=== PATIENT | female | born 1995 | race Caucasian/White ===

== ENCOUNTER → 2020-03-06 12:25 | Outpatient (BNVA) | payer BC, SELFPAY | PROVIDERS: Family Provider Family Medicine; Visit Provider Family Medicine | DX: Z11.59 Encounter for screening for other viral diseases (principal) | CPT/HCPCS: 87635 ==

== ENCOUNTER 2020-03-13 08:30 | Outpatient (CLI) | payer BC, SELFPAY ==
--- NOTE | 2020-03-13 08:44 | US_ITS ---
WS: [id number] ULTRASOUND EARLY TECHNIQUE: Transabdominal sonography of the pelvis was performed. Followed by transvaginal sonography to better evaluate the uterus and ovaries. CLINICAL INFORMATION: HIGH RISK LMP: 01/07/2020 Beta hCG: Unknown. COMPARISON: None. FINDINGS: Cervix measures 3.2 cm UTERUS AND GESTATIONAL SAC Intrauterine gestations: Estimated gestational age: 9w6d Estimated date of delivery October 10, 2020 Yolk sac: 0.3 cm. Tebbetts rump length (CRL): 3.0 cm. heart motion: 176 BPM. Subchorionic hemorrhage: None. OVARIES Multifollicular ovaries bilaterally. Right ovary: Normal. Left ovary: Normal. FREE FLUID None. US/US OB <= 14 weeks fetus [id number] IMPRESSION: 1. Single live intrauterine . movement visualized. 2. Estimated gestational age; 9w6d 3. Normal cervix. 4. No free fluid in the cul-de-sac. 5. Normal ovaries.
== END 2020-03-13 08:31 | disposition home or self-care (01) ==
LOC: RAD 08:36
PROVIDERS: PCP Family Medicine; Visit Provider Family Medicine
DX: O09.91 Supervision of high risk pregnancy, unspecified, first trimester; Z3A.09 9 weeks gestation of pregnancy
CPT/HCPCS: 76801

== ENCOUNTER → 2020-04-22 17:04 | Outpatient (BNVA) | payer BC, SELFPAY | PROVIDERS: PCP Family Medicine; Visit Provider Family Medicine | DX: Z20.828 Contact with and (suspected) exposure to other viral communicable diseases (principal) | CPT/HCPCS: 87635 ==

== ENCOUNTER 2020-07-22 07:02 | Outpatient (CLI) | payer BC, MEDICAID, SELFPAY ==
[2020-07-22 07:43] VITALS: BP 127/84; PULSE 89
[2020-07-22 07:50] VITALS: BP 124/84; PULSE 68; RESP 18
--- NOTE | 2020-07-22 09:58 | PC.NURSE ---
[PT HERE AND THIS TRANSPORTATION SALES CONSULTANT WENT TO CHECK ON HER, HAD MISUNDERSTANDING BY MYSELF THAT SHE HAD ALREADY HAD BLOOD DRAW AND WE JUST HAD TO GIVE HER HER SHOT. THAT WAS NOT THE CASE, SO THIS TRANSPORTATION SALES CONSULTANT CALLED LAB TO COME DRAW HER AND I EXPLAINED THAT IT WAS GOING TO TAKE AWHILE TO GET IT DONE AND SHE STATED THAT SHE HAD APPOINTMENT IN [facility] WITH AND NEEDED TO GO. TOLD HER THAT SHE COULD GO AND COME BACK LATER TODAY WHEN [place] GOT [place] AND WE COULD GIVE HER HER INJECTION. LAB HERE AND DRAW HER BLOOD AND PATIENT DOES NOT LIKE NEEDLES SO SHE GOT HOT AND FLUSHED BUT SHE WAS GIVEN JUICE AND COOL CLOTH AND SHE RECOVERED QUICKLY. PT HAD NO IDEA WHAT THE PROCEDURE WAS ON GETTING RHOGAM, SHE DID NOT EVEN KNOW THAT A SHOT WAS INVOLVED PRIOR TO ME EXPLAINING IT TO HER. TOLD PT TO LEAVE HER TYPENEX BRACLET ON BECAUSE WE THAT WAS WHAT WE WERE GOING TO CONPARE TO GIVE HER HER INJECTION. TOLD HER NOT TO HURRY BACK THAT THE RHOGAM WAS GOOD FOR 72 HOURS LONG SHE RETURNED AND HAD HER BRACELET ON. PT AND HER DAD VOICE UNDERSTANDING. THIS TRANSPORTATION SALES CONSULTANT CALLED DR. VELAZQUEZ AND TOLD HIM ABOUT PT BEING HERE AND NOT UNDERSTANDING AT ALL ABOUT THE RHOGAM SHOT. TOLD HIM THAT SHE WAS GOING TO RETURN LATER TODAY FOR INJUECTION. HE STATED THAT WE DON'T NEED TO CALL HIM BACK LATER THAT SHE COULD JUST GET SHOT AND GO HOME, NOTHING NEEDED BUT RHOGAM.
[2020-07-22 15:51] VITALS: BP 126/84; PULSE 68; RESP 18; TEMP 36.2
== END 2020-07-22 07:55 | disposition home or self-care (01) ==
LOC: OPOB 07:02 → OBGYN 07:05
PROVIDERS: PCP Family Medicine; Visit Provider Family Medicine
DX: O26.899 Other specified pregnancy related conditions, unspecified trimester (principal); Z3A.00 Weeks of gestation of pregnancy not specified; Z31.82 Encounter for Rh incompatibility status; Z67.91 Unspecified blood type, Rh negative
CPT/HCPCS: 36415; 86850; 86900; 90384; 96372

== ENCOUNTER 2020-08-29 16:20 | Outpatient (CLI) | payer BC, MEDICAID, SELFPAY ==
[2020-08-29 16:43] VITALS: BP 115/65; PULSE 86; TEMP 36.9
== END 2020-08-29 17:25 | disposition home or self-care (01) ==
LOC: OPOB 16:22 → OBGYN 16:23
PROVIDERS: PCP Family Medicine; Visit Provider Family Medicine
DX: O26.899 Other specified pregnancy related conditions, unspecified trimester (principal); Z3A.00 Weeks of gestation of pregnancy not specified; D75.9 Disease of blood and blood-forming organs, unspecified
CPT/HCPCS: 59025; 99211

== ENCOUNTER 2020-09-05 16:12 | Outpatient (CLI) | payer BC, MEDICAID, SELFPAY ==
[2020-09-05 16:39] VITALS: BMI 33.5
[2020-09-05 16:46] VITALS: BP 99/67; PULSE 93
== END 2020-09-05 16:58 | disposition home or self-care (01) ==
LOC: OPOB 16:16 → OBGYN 16:18
PROVIDERS: PCP Family Medicine; Visit Provider Family Medicine
DX: O26.899 Other specified pregnancy related conditions, unspecified trimester (principal); Z3A.00 Weeks of gestation of pregnancy not specified
CPT/HCPCS: 59025

== ENCOUNTER 2020-09-12 16:37 | Outpatient (CLI) | payer BC, MEDICAID, SELFPAY ==
[2020-09-12 16:55] VITALS: RESP 16; TEMP 36.8
[2020-09-12 16:57] VITALS: BP 110/76; PULSE 96
[2020-09-12 17:12] VITALS: BP 107/69; PULSE 85
== END 2020-09-12 17:18 | disposition home or self-care (01) ==
LOC: OPOB 16:40 → OBGYN 16:41
PROVIDERS: PCP Family Medicine; Visit Provider Family Medicine
DX: O26.899 Other specified pregnancy related conditions, unspecified trimester (principal); Z3A.00 Weeks of gestation of pregnancy not specified; Z86.718 Personal history of other venous thrombosis and embolism; Z79.01 Long term (current) use of anticoagulants
CPT/HCPCS: 59025

== ENCOUNTER 2020-09-26 17:50 | Outpatient (CLI) | payer BC, MEDICAID, SELFPAY ==
[2020-09-26 18:02] VITALS: BP 109/68; PULSE 82
[2020-09-26 18:03] VITALS: RESP 16; TEMP 36.6
[2020-09-26 18:14] VITALS: BMI 34.3
[2020-09-26 18:17] VITALS: BP 106/60; PULSE 76
== END 2020-09-26 18:35 | disposition home or self-care (01) ==
LOC: OPOB 17:56 → OBGYN 10-02 08:16
PROVIDERS: PCP Family Medicine; Visit Provider Family Medicine
DX: O26.899 Other specified pregnancy related conditions, unspecified trimester (principal); Z3A.00 Weeks of gestation of pregnancy not specified; Z86.718 Personal history of other venous thrombosis and embolism
CPT/HCPCS: 59025; 99211

== ENCOUNTER 2020-10-04 16:27 | Outpatient (CLI) | payer BC, MEDICAID, SELFPAY ==
[2020-10-04 16:37] VITALS: BMI 33.7
[2020-10-04 16:40] VITALS: BP 124/78; PULSE 104
[2020-10-04 16:42] VITALS: TEMP 36.4
[2020-10-04 16:45] VITALS: RESP 18
[2020-10-04 16:59] VITALS: BP 105/67; PULSE 93
[2020-10-04 17:10] VITALS: BP 105/67; PULSE 93; RESP 18
== END 2020-10-04 17:15 | disposition home or self-care (01) ==
LOC: OPOB 16:33 → OBGYN 16:35
PROVIDERS: PCP Family Medicine; Visit Provider Internal Medicine
DX: O26.899 Other specified pregnancy related conditions, unspecified trimester (principal); Z3A.00 Weeks of gestation of pregnancy not specified; Z86.718 Personal history of other venous thrombosis and embolism
CPT/HCPCS: 59025

== ENCOUNTER 2020-10-09 06:07 | Inpatient (IN) | payer BC, MEDICAID, SELFPAY ==
[2020-10-09] VITALS (76 sets, daily range): BP systolic 96–169; BP diastolic 55–145; PULSE 67–145; RESP 16–18; TEMP 36.5–36.9; O2SAT 80–100; BMI 33.5
[2020-10-09] MEDS: oxytocin 30 UNIT/500 ML BAG 4 UNIT IV (07:42)
[2020-10-09] MEDS: dextrose 5%-lactated ringers 1,000 ML 125 ML IV ×2 (07:42→21:25)
[2020-10-09 07:52] LABS: Basophils # 0.1 10^3/uL (0.0-0.1); Basophils % 0.7 %; Eosinophils # 0.2 10^3/uL (0.0-0.8); Eosinophils % 1.4 %; Hematocrit 37.7 % (37.0-47.0); Hemoglobin 11.9 g/dL (11.5-15.3); Lymphocytes # 3.8 10^3/uL (0.8-4.8); Lymphocytes % 31.1 %; Mean Corpuscular HGB Conc 31.6 g/dL (30.0-36.0); Mean Corpuscular Hemoglobin 27.9 pg (28.0-34.0); Mean Corpuscular Volume 88.3 fL (81-99); Mean Platelet Volume 10.8 fL (7.4-10.4); Monocytes # 0.9 10^3/uL (0.2-0.9); Monocytes % 7.2 %; Neutrophils % 59.1 %; Nucleated Red Blood Cells % 0 %; Platelet Count 313 10^3/cmm (130-400); Red Blood Count 4.27 10^6/uL (4.1-5.3); Red Cell Distribution Width 13.6 % (12.1-15.1); White Blood Count 12.2 10^3/uL (4.0-10.0)
--- NOTE | 2020-10-09 08:28 | PM.HP ---
Providers/Chief Complaint Admitting Physician: Caio Yo MD Primary Care Provider: Greg Gamble MD Chief Complaint: induction History of Present Illness Kayla Sorensen is a 24 year old G1, P0 at 39.3 weeks gestation by LMP consistent with 9-week ultrasound. Her is complicated by history of PE while on OCPs in 2016 now on Lovenox 40 mg daily for prophylaxis, Down syndrome and family, Rh-. The patient presents for a scheduled induction of labor secondary to history of blood clot in order to be off of Lovenox prior to delivery. The patient is feeling well at this time. She denies any chest pains, shortness of breath, nausea, vomiting, diarrhea, constipation, dysuria, headaches, vaginal bleeding, leakage of fluid, contractions. Upon admission the patient cervix was 4/70/-2. Medications/Allergies Home Medications Medication Instructions Recorded Confirmed Last Taken Type Lovenox 09/05/20 09/26/20 History 0700 #2 1 tab PO DAILY 09/05/20 09/05/20 Unknown History ProAir HFA 09/05/20 Unknown History Allergies Allergy/AdvReac Type Severity Reaction Status Date / Time No Known Allergies Allergy Verified 09/05/20 17:19 PFSH Acute PFSH: Medical History (Updated 10/09/20 @ 08:32 by Caio Yo MD) Hx pulmonary embolism Social History (Updated 10/09/20 @ 08:34 by Caio Yo MD) Smoking and tobacco status: never smoked Alcohol intake: never Substance/Drug Use: never Female Reproductive History: : 1 Vitals/I&O/Wt Last Vital Signs Pulse 87 10/09/20 08:15 Resp 17 10/09/20 07:55 BP 109/76 10/09/20 08:15 Weight last 48 hrs Weight 172 lb Physical Exam Narrative: EXAM NARRATIVE: General: Alert and oriented x3 Eyes: Pupils equal round and reactive to light and accommodation Mouth: Mucous membranes moist, pharynx non-erythematous Cardiac: Regular rate and rhythm without murmurs Lungs: Clear to auscultation bilaterally without wheezes, crackles or rhonchi Abdomen: Soft, non-tender, fundus consistent with gestational age Extremities: Trace edema in the bilateral lower extremities Data : 10/09/20 06:30 A&P Additional A&P Information The patient is doing well at this time she last took her Lovenox on 10/07/2020. The patient denies any current symptoms of blood clot. The patient should be safe to get an epidural if desired. The patient is doing well currently and we will proceed with induction of labor with IV Pitocin. All questions were answered. The patient and her significant other are in agreement with the current plan of care. Attestations Medical Necessity Statement*: The patient will be here for greater than 2 midnights due to routine intrapartum and management of labor and delivery. Coding Level of Care Code Acute [employer] Manager for Brenda Keenan
[2020-10-09] MEDS: lactated ringers 1,000 ML 999 ML IV ×2 (13:46→14:37)
[2020-10-09] MEDS: butorphanol 2 mg/mL SDV 1 mL 1 MG IVP (13:46)
--- NOTE | 2020-10-09 14:30 | ANES.PREANE2 ---
Pre-Anesthetic Assessment Pre-Anesthetic Assessment: Height/Weight: Height 1.52 m Weight 78.018 kg Temp Pulse Resp BP 97.7 F 85 16 130/80 10/09/20 12:55 10/09/20 14:16 10/09/20 12:55 10/09/20 14:16 Preop Diagnosis: labor pain Proposed Procedure: epidural Was Beta Mitch taken within 24 hours: N/A Was Clonidine taken within 24 hours: N/A Social: Social History: No alcohol and No tobacco Exam: Pre-Anes Outpt Exam: alert, oriented x 3, clear to auscultation bilaterally and regular rate & rhythm Airway: Submandibular: WNL Cervical ROM: WNL MP: 2 Dentition: Full Pulmonary: Pulmonary: Asthma (inhaler as needed) CV/HEM: Comments: blood clots/PE history on lovenox until 10/07 : : None reported Hepatic: Hepatic: None reported GI: GI: None reported Metabolic: Metabolic: None reported Musc/skel: Musc/skel: None reported Neuropsych: Neuropsych: None reported Anesthetic Plan: ASA status: 2 Anesthesia: Regional (specify below) Risk of > 500 ml blood loss (7ml/kg in children): No Meds/Allergies Current Medications: Current Medications Generic Name Dose Route Start Last Admin Trade Name Freq PRN Reason Stop Dose Admin Butorphanol Tartra te 1 mg 10/09/20 06:55 10/09/20 13:46 Butorphanol 2 Mg /Ml Sdv 1 Ml IVP 1 mg Q2H PRN Administration SEVERE PAIN Lactated Ringer's 1,000 mls @ 999 m ls/hr 10/09/20 06:55 10/09/20 13:46 Lactated Ringers IV 999 mls/hr .Q1H1M PRN Administration See label comment s Dextrose/Lactated Ringer's 1,000 mls @ 125 m ls/hr 10/09/20 07:00 10/09/20 13:54 Dextrose 5%-Lact ated Ringers IV Infused .Q8H DANIEL Infusion Oxytocin 30 unit in 500 ml s @ 1 mls/hr 10/09/20 07:00 10/09/20 09:45 Pitocin IV 20 milliunit/min .Q24H DANIEL 20 mls/hr Titration Protocol 1 MILLIUNIT/MIN PFSH Anesthesia PFSH: Medical History (Updated 10/09/20 @ 08:32 by Caio Yo MD) Hx pulmonary embolism Social History (Updated 10/09/20 @ 08:34 by Caio Yo MD) Smoking and tobacco status: never smoked Alcohol intake: never Substance/Drug Use: never Female Reproductive History: : 1 Data Anesthesia CBC & Chem 7: 10/09/20 06:30 Other Labs: Laboratory Results - last 48 hr 10/09/20 06:30 WBC 12.2 H RBC 4.27 Hgb 11.9 Hct 37.7 MCV 88.3 MCH 27.9 L MCHC 31.6 RDW 13.6 Plt Count 313 MPV 10.8 H Neut % (Auto) 59.1 Lymph % (Auto) 31.1 [place] % (Auto) 7.2 Eos % (Auto) 1.4 Baso % (Auto) 0.7 Neut # (Auto) 7.20 Lymph # (Auto) 3.8 [place] # (Auto) 0.9 Eos # (Auto) 0.2 Baso # (Auto) 0.1 Nucleated RBC % (auto) 0 Nucleated RBCs # 0.0 Cardiac Studies: No Data to Display
--- NOTE | 2020-10-09 15:03 | ANES.PROC ---
Anesthesia Procedures Procedure/Date: 10/09/20 epidural Procedure Narrative: epidural complete, bolus given, epidural pump initiated with MAINTENANCE OPERATOR education given, vitals taken during procedure using OBIX system and satisfactory throughout, patient admits to decrease pain, report of procedure to OB RN Epidural: Time Out Performed: Yes Consents Signed: Procedure Consent Consent: requested by attending/covering physician, from patient, risks and benefits reviewed and patient agrees to proceed Lumbar Level: L3-L4 Epidural position: sitting Epidural procedure: sterile prep of area, 1% lidocaine to numb the area (3 mL), 18 g needle, negative for paresthesia passed, neg for paresthesia, test dose given, 1.5% xylocaine 1:200k epi (5 mL), 0.2% Ropivacaine bolus ml (5 mL), placed PCEA, no systemic response, sterile dressing applied, L.U.D. no apparent complications and 0.2% Ropiavacaine @ mls/hr (13 mL/hr)
--- NOTE | 2020-10-09 16:51 | PC.NURSE ---
Dr. Ochoa notified to come to the floor for delivery due to heart tones.
--- NOTE | 2020-10-09 16:56 | PC.NURSE ---
Anesthesia notified Faustino Joshua with anesthesia was notified per Dr Yo's request. He stated that he was coming to the floor.
--- NOTE | 2020-10-09 20:03 | PM.DELIVERY ---
Delivery Note: Date of delivery: October 09, 2020 Pre-delivery diagnoses: 1. Intrauterine at 39.3 weeks gestation 2. History of pulmonary embolism while on OCPs in 2016 3. Rh- Post-delivery diagnoses: 1. Intrauterine at 39.3 weeks gestation 2. History of pulmonary embolism 3. Rh- 4. Delivery of healthy female weighing 7 pounds 12 ounces with Apgars of 8 and 9 Procedure: Spontaneous vaginal delivery Op report anesthesia: Epidural Delivering Physician: Caio Yo MD Estimated blood loss (mL): 100 Findings: 1. Healthy infant female weighing 7 pounds 12 ounces with Apgars of 8 and 9 2. Intact placenta with peripheral umbilical cord insertion site. Pre-Delivery Course: The patient was admitted to labor and delivery triage for induction of labor on the morning of 10/09/2020 secondary to being on Lovenox for history of pulmonary embolism. The patient last took her Lovenox on 10/07/2020 so that an epidural would be possible. The patient was 4 cm dilated upon admission and was started on IV Pitocin. The patient made good cervical change and had SROM at 1340 on 10/09/2020. She was 6 cm at that time. She is making good progress until she got to 9 cm. At that time she had a significant deceleration with nonreassuring heart tones. For this reason IV Pitocin was stopped, a fluid bolus was given, oxygen was given and repositioning was done. Gradually the 's heart rate improved and the patient began pushing at 1650 on 10/09/2020. Delivery: The patient was complete shortly after her first push as she pushed past the anterior lip. Patient continued to push and pushed well. The heart tone tracings improved with pushing and there were no further prolonged decelerations after the initial set of pushing until the was . At that time the 's heart rate was staying in the 70s and an episiotomy was done to expedite delivery. The infant delivered in the OA position at 1906 on 10/09/2020. There was no nuchal cord. The left shoulder was the anterior shoulder and delivered with downward pressure. The right shoulder delivered with steady upward pressure. The rest of the infant delivered without complication. The mouth and nose were bulb suctioned by myself and the was crying immediately upon delivery. The infant was placed on the mother's chest where the nurses were waiting to care for her. The cord was clamped by myself after approximately 1 minute. The cord was cut by the 's father. Cord blood was obtained. The cord was then drained of blood and tension was placed on umbilical cord. The placenta delivered without complication at 1911 on 10/09/2020. The placenta was noted to be intact with a peripheral umbilical cord insertion site. The cervix was inspected and no lacerations were noted. The vaginal wall was inspected and no lacerations were noted other than a second-degree midline laceration from the episiotomy. The patient did not need additional anesthesia as her epidural was working still. The laceration was repaired using 3-0 Vicryl in a running fashion. A rectal exam was done and no sutures were noted in the rectum. Currently both the mother and are doing well. Coding Level of Care Code Acute Relief Man for Brenda Keenan
[2020-10-09] MEDS: oxytocin 30 UNIT/500 ML BAG 600 UNIT IV (21:36)
[2020-10-10] VITALS (8 sets, daily range): BP systolic 85–115; BP diastolic 50–70; PULSE 79–105; RESP 14–16; TEMP 36.7–36.8; O2SAT 98–99
[2020-10-10] MEDS: acetaminophen 325 mg Tablet 650 MG PO (00:35)
[2020-10-10 08:24] LABS: Hematocrit 30.3 % (37.0-47.0); Hemoglobin 9.7 g/dL (11.5-15.3); Mean Corpuscular Hemoglobin 28.1 pg (28.0-34.0); Mean Corpuscular Volume 87.8 fL (81-99); Mean Platelet Volume 10.5 fL (7.4-10.4); Platelet Count 240 10^3/cmm (130-400); Red Blood Count 3.45 10^6/uL (4.1-5.3); Red Cell Distribution Width 13.7 % (12.1-15.1); White Blood Count 15.3 10^3/uL (4.0-10.0)
--- NOTE | 2020-10-10 08:39 | P.PN_ITS ---
Subjective Subjective: Interval history: The patient is doing well today. She does have pain related to her tear, otherwise is doing well. Her bleeding is decreasing well. She is ambulating, voiding, passing gas and tolerating food by mouth. Vitals/I&O/Wt Last Vital Signs Temp 98.3 F 10/10/20 00:30 Pulse 97 10/10/20 05:39 Resp 16 10/09/20 16:31 BP 88/50 10/10/20 05:39 Pulse Ox 99 10/09/20 15:39 10/09/20 10/10/20 10/10/20 22:59 06:59 14:59 Intake Total 1451.200 / 3341.400 385.417 / 3726.817 Output Total 1850 / 1850 Balance 1451.200 / 3341.400 -1464.583 / 1876.817 Weight last 48 hrs Weight 172 lb Physical Exam Narrative: EXAM NARRATIVE: General: Alert and oriented x3 Mouth: Mucous membranes moist, pharynx non-erythematous Cardiac: Regular rate and rhythm without murmurs Lungs: Clear to auscultation bilaterally without wheezes, crackles or rhonchi Abdomen: Soft, mild tenderness over the uterus fundus is firm and 2 cm below the umbilicus. Extremities: Trace edema in the bilateral lower extremities Urinary Catheter Management^: Curry: Cath Placed During This Visit: yes Urinary Catheter Date of Insertion: 10/09/20 Urinary Catheter Time of Insertion: 15:35 Data : 10/10/20 08:06 A&P Additional A&P Information The patient is doing well at this time. We will continue to need breast-feeding support. Continue with pain management. Her bleeding is decreasing well. As long as she continues to do well, will plan for discharge home tomorrow. All questions were answered. Attestations Medical Necessity Statement*: Patient will be here for greater than 2 midnights due to routine intrapartum and management of labor and delivery. Coding Level of Care Code Acute Superannuation Funds Manager for Brenda Keenan
[2020-10-10] MEDS: docusate sodium 100 mg Capsule PO ×2 (09:10→17:56)
[2020-10-10] MEDS: ibuprofen 800 mg tablet PO ×3 (09:10→20:40)
[2020-10-10] MEDS: prenatal vitamin Capsule 1 CAP PO (09:10)
[2020-10-10] MEDS: benzocaine-menthol 78 gm Canister 1 SPRAY TOPICAL (20:40)
[2020-10-11 04:30] VITALS: BP 100/66; PULSE 101; RESP 16; TEMP 36.8; O2SAT 97
--- NOTE | 2020-10-11 06:49 | P.DS_ITS ---
Discharge Providers Date of Admission: 10/09/20 06:07 Date of Discharge: October 11, 2020 Attending Provider at Admission: Caio Yo MD Attending Provider at Discharge: Caio Yo MD Primary Care Provider: Greg Gamble MD Diagnoses at Discharge Other Information Additional DC diagnoses/information: 1. Intrauterine s/p spontaneous vaginal delivery at 39.3 weeks gestation 2. History of pulmonary embolism 3. Rh- 4. Delivery of healthy female weighing 7 pounds 12 ounces with Apgars of 8 and 9 Reason for Visit Reason for Visit: induction Hospital Course Hospital Course Pre-Delivery Course: The patient was admitted to labor and delivery triage for induction of labor on the morning of 10/09/2020 secondary to being on Lovenox for history of pulmonary embolism. The patient last took her Lovenox on 10/07/2020 so that an epidural would be possible. The patient was 4 cm dilated upon admission and was started on IV Pitocin. The patient made good cervical change and had SROM at 1340 on 10/09/2020. She was 6 cm at that time. She is making good progress until she got to 9 cm. At that time she had a significant deceleration with nonreassuring heart tones. For this reason IV Pitocin was stopped, a fluid bolus was given, oxygen was given and repositioning was done. Gradually the infant's heart rate improved and the patient began pushing at 1650 on 10/09/2020. Delivery: The patient was complete shortly after her first push as she pushed past the anterior lip. Patient continued to push and pushed well. The heart tone tracings improved with pushing and there were no further prolonged decelerations after the initial set of pushing until the was . At that time the 's heart rate was staying in the 70s and an episiotomy was done to expedite delivery. The delivered in the OA position at 1906 on 10/09/2020. There was no nuchal cord. The left shoulder was the anterior shoulder and delivered with downward pressure. The right shoulder delivered with steady upward pressure. The rest of the infant delivered without complication. The mouth and nose were bulb suctioned by myself and the was crying immediately upon delivery. The was placed on the mother's chest where the nurses were waiting to care for her. The cord was clamped by myself after approximately 1 minute. The cord was cut by the infant's father. Cord blood was obtained. The cord was then drained of blood and tension was placed on umbilical cord. The placenta delivered without complication at 191 on 10/09/2020. The placenta was noted to be intact with a peripheral umbilical cord insertion site. The cervix was inspected and no lacerations were noted. The vaginal wall was inspected and no lacerations were noted other than a second-degree midline laceration from the episiotomy. The patient did not need additional anesthesia as her epidural was working still. The laceration was repaired using 3-0 Vicryl in a running fashion. A rectal exam was done and no sutures were noted in the rectum. Currently both the mother and infant are doing well. Postdelivery course: The patient is doing very well without any complications. Her bleeding is decreasing well. Her pain is well controlled. She is ambulating, voiding, passing gas and tolerating food by mouth. All questions were answered. Routine discharge instructions were discussed. The patient and her significant other are in agreement with discharge home at this time. Physical Exam Narrative: EXAM NARRATIVE: General: Alert and oriented x3 Mouth: Mucous membranes moist, pharynx non-erythematous Cardiac: Regular rate and rhythm without murmurs Lungs: Clear to auscultation bilaterally without wheezes, crackles or rhonchi Abdomen: Soft, mild tenderness over the uterus fundus is firm and 2 cm below the umbilicus. Extremities: Trace edema in the bilateral lower extremities Urinary Catheter Management^: Curry: Cath Placed During This Visit: yes Urinary Catheter Date of Insertion: 10/09/20 Urinary Catheter Time of Insertion: 15:35 Discharge Data Data Completed and Pending: Labs from last 24 hours 10/10/20 10/10/20 10/09/20 08:06 08:06 06:30 WBC 15.3 H RBC 3.45 L Hgb 9.7 L Hct 30.3 L MCV 87.8 MCH 28.1 MCHC 32.0 RDW 13.7 Plt Count 240 MPV 10.5 H Blood Type B Negative Rho(D) Type Negative / 0 Antibody Screen Negative Screen Negative Vitals: Last Vital Signs Temp 98.2 F 10/11/20 04:30 Pulse 101 H 10/11/20 04:30 Resp 16 10/11/20 04:30 BP 100/66 10/11/20 04:30 Pulse Ox 97 10/11/20 04:30 Discharge Plan Discharge Patient Disposition: Home Condition: Good Prescriptions: New ibuprofen 800 mg Tablet 800 mg PO TID Qty: 60 RF: 0 hydrocodone-acetaminophen 5-325 mg Tablet 1 tab PO Q6H PRN (Reason: Moderate To Severe Pain) Qty: 20 RF: 0 DOK 100 mg Capsule 100 mg PO BID Qty: 30 RF: 0 ferrous sulfate 325 mg (65 mg iron) tablet 325 mg PO BID 15 Days Qty: 30 RF: 0 Continued Lovenox auto-injector RF: 0 #2 tablet 1 tab PO DAILY RF: 0 ProAir HFA inhaler RF: 0 Discharge Orders: Discharge Order (Routine); Ordered 10/11/20 Ordered By: Caio Yo Referrals: Caio Yo MD [Physician] - 11/22/20 9:00 am (6 weeks Your 6 week appointment has been scheduled for 11/22/[address] Yo.) Discharge Diet: Usual diet Discharge Activity: Increase activity as tolerated Patient Instructions: Depression (GEN), Vaginal Delivery (DC), Pre- eclampsia and Eclampsia (DC), Bleeding (DC), OB Discharge Report, OB Food/Drug Interaction Guide, Opioid Safety, OB Home Care, OB Proud Parent Packet Activity Restrictions/Additional Instructions: Nothing per vagina for 6 weeks. Discharge Attestations Time Spent in Discharge Care*: greater than 30 min Quality Metrics Clinical Quality Measures During this hospital stay, did patient experience: None Coding Level of Care Code Acute Chg FW DC note
[2020-10-11 07:45] VITALS: BP 123/76; PULSE 91; RESP 16; TEMP 36.6; O2SAT 98
--- NOTE | 2020-10-11 08:21 | PC.NURSE ---
note This mom is nursing using a nipple shield and is getting more comfortable with the process. She still has some tenderness on her left nipple, Reviewed positioning and nipple care.
== END 2020-10-11 09:15 | disposition home or self-care (01) | DRG 806 ==
PROVIDERS: Admitting Provider Family Medicine; PCP Family Medicine; Visit Provider Family Medicine
DX: O76 Abnormality in fetal heart rate and rhythm complicating labor and delivery (principal); O36.0930 Maternal care for other rhesus isoimmunization, third trimester, not applicable or unspecified; Z37.0 Single live birth; O70.1 Second degree perineal laceration during delivery; Z3A.39 39 weeks gestation of pregnancy; Z86.711 Personal history of pulmonary embolism
CPT/HCPCS: 36415; 51702; 59025; 59409; 85025; 85027; 85460; 86850; 86900; 90384; 98960; 99211; J0595; J2795

== ENCOUNTER → 2021-10-01 10:23 | Outpatient (BNVA) | payer BC, MEDICAID, SELFPAY | PROVIDERS: PCP Family Medicine; Visit Provider Family Medicine | DX: O09.90 Supervision of high risk pregnancy, unspecified, unspecified trimester (principal); Z51.81 Encounter for therapeutic drug level monitoring; Z3A.00 Weeks of gestation of pregnancy not specified | CPT/HCPCS: 85025 ==

== ENCOUNTER → 2021-12-02 09:48 | Outpatient (BNVA) | payer BC, MEDICAID, SELFPAY | PROVIDERS: PCP Family Medicine; Visit Provider Family Medicine | DX: O99.810 Abnormal glucose complicating pregnancy (principal); Z3A.00 Weeks of gestation of pregnancy not specified | CPT/HCPCS: 82950 ==

== ENCOUNTER → 2021-12-12 07:42 | Outpatient (BNVA) | payer BC, MEDICAID, SELFPAY | PROVIDERS: PCP Family Medicine; Visit Provider Family Medicine | DX: O09.93 Supervision of high risk pregnancy, unspecified, third trimester (principal); O26.899 Other specified pregnancy related conditions, unspecified trimester; Z67.91 Unspecified blood type, Rh negative; Z34.90 Encounter for supervision of normal pregnancy, unspecified, unspecified trimester; O99.810 Abnormal glucose complicating pregnancy | CPT/HCPCS: 82951; 82952 ==

== ENCOUNTER → 2021-12-15 11:56 | Day surgery (SDC) | payer BC, MEDICAID, SELFPAY ==
[2021-12-15 13:55] VITALS: BP 114/90; PULSE 98; RESP 18; TEMP 36.8; O2SAT 98
[2021-12-15 13:57] VITALS: BP 114/90; PULSE 102; RESP 18; TEMP 36.8; O2SAT 98
== END ==
LOC: GILAB 11:57
PROVIDERS: PCP Family Medicine; Visit Provider Family Medicine
DX: O09.90 Supervision of high risk pregnancy, unspecified, unspecified trimester (principal); O36.0990 Maternal care for other rhesus isoimmunization, unspecified trimester, not applicable or unspecified; Z3A.00 Weeks of gestation of pregnancy not specified
CPT/HCPCS: 36415; 36430; 86850; 86900; 90384; 96372

== ENCOUNTER → 2022-01-08 13:38 | Outpatient (BNVA) | payer BC, MEDICAID, SELFPAY | PROVIDERS: PCP Family Medicine; Visit Provider Family Medicine | DX: O24.419 Gestational diabetes mellitus in pregnancy, unspecified control (principal); Z51.81 Encounter for therapeutic drug level monitoring; O26.899 Other specified pregnancy related conditions, unspecified trimester; Z67.91 Unspecified blood type, Rh negative | CPT/HCPCS: 85025 ==

== ENCOUNTER 2022-01-12 13:47 | Outpatient (CLI) | payer BC, MEDICAID, SELFPAY ==
[2022-01-12 13:56] VITALS: BP 107/69; PULSE 89
[2022-01-12 14:18] VITALS: BP 97/60; PULSE 84
[2022-01-12 14:40] VITALS: BMI 33.7
== END 2022-01-12 14:35 | disposition home or self-care (01) ==
LOC: OPOB 13:48 → OBGYN 13:48
PROVIDERS: PCP Family Medicine; Visit Provider Family Medicine
DX: O26.93 Pregnancy related conditions, unspecified, third trimester (principal); Z3A.32 32 weeks gestation of pregnancy
CPT/HCPCS: 59025

== ENCOUNTER 2022-01-14 13:17 | Outpatient (CLI) | payer BC, MEDICAID, SELFPAY ==
--- NOTE | 2022-01-14 13:00 | US_ITS ---
WS: [id number] BIOPHYSICAL PROFILE AMNIOTIC FLUID HISTORY: gestational DM COMPARISON: 07/24/2021 Cardiac activity: 157 bpm. Cervix: closed. Placenta: Posterior, no previa or abruption. Placenta grade: 1 Parameters are as follows: Breathin Movement: 2 Tone: 2 Fluid volume: 2 Amniotic fluid index: 9.5 cm; largest vertical pocket of amniotic fluid 2.8 cm. US/US OB BPP wo NST [id number] IMPRESSION: 1. Biophysical profile score: 8/8. 2. Normal amniotic fluid.
== END 2022-01-14 13:18 | disposition home or self-care (01) ==
LOC: RAD 13:17
PROVIDERS: PCP Family Medicine; Visit Provider Family Medicine
DX: O24.419 Gestational diabetes mellitus in pregnancy, unspecified control (principal)
CPT/HCPCS: 76819

== ENCOUNTER 2022-01-19 14:38 | Outpatient (CLI) | payer BC, MEDICAID, SELFPAY ==
[2022-01-19 14:46] VITALS: RESP 15
[2022-01-19 14:50] VITALS: BP 119/56; PULSE 118; BMI 33.7
[2022-01-19 15:09] VITALS: BP 98/57; PULSE 108
== END 2022-01-19 15:23 | disposition home or self-care (01) ==
LOC: OPOB 14:39 → OBGYN 14:40
PROVIDERS: PCP Family Medicine; Visit Provider Family Medicine
DX: O24.419 Gestational diabetes mellitus in pregnancy, unspecified control (principal); Z3A.29 29 weeks gestation of pregnancy
CPT/HCPCS: 59025

== ENCOUNTER 2022-02-04 07:43 | Outpatient (CLI) | payer BC, MEDICAID, SELFPAY ==
--- NOTE | 2022-02-04 | US_ITS ---
WS: [id number] BIOPHYSICAL PROFILE AMNIOTIC FLUID HISTORY: WEEKLY BPP AND KELLY COMPARISON: 01/19/2022 Cardiac activity: 150 bpm. Cervix: Partially obscured by the head. No cervical insufficiency identified. position: Vertex. Placenta: Posterior, no previa or abruption. Placenta grade: 2 Parameters are as follows: Breathin Movement: 2 Tone: 2 Fluid volume: 2 Amniotic fluid index: 14.8 cm; largest vertical pocket 5.2 cm. No significant change of amniotic flui d volume. US/US OB BPP wo NST [id number] IMPRESSION: 1. Biophysical profile score: 8/8. 2. Normal amniotic fluid index. No significant change in volume of amniotic flu id since the prior study.
== END 2022-02-04 07:44 | disposition home or self-care (01) ==
LOC: RAD 07:43
PROVIDERS: PCP Family Medicine; Visit Provider Family Medicine
DX: O24.419 Gestational diabetes mellitus in pregnancy, unspecified control (principal)
CPT/HCPCS: 76819

== ENCOUNTER → 2022-02-05 10:39 | Outpatient (BNVA) | payer BC, MEDICAID, SELFPAY | PROVIDERS: PCP Family Medicine; Visit Provider Family Medicine | DX: Z34.90 Encounter for supervision of normal pregnancy, unspecified, unspecified trimester (principal) | CPT/HCPCS: 87081 ==

== ENCOUNTER 2022-02-09 11:53 | Outpatient (CLI) | payer BC, MEDICAID, SELFPAY ==
[2022-02-09 11:59] VITALS: RESP 16
[2022-02-09 12:00] VITALS: BP 137/77; PULSE 113
[2022-02-09 12:03] VITALS: BMI 34.0
[2022-02-09 12:07] VITALS: RESP 18
[2022-02-09 12:11] VITALS: BP 113/73; PULSE 100
[2022-02-09 12:20] VITALS: BP 106/70; PULSE 90
== END 2022-02-09 12:25 | disposition home or self-care (01) ==
LOC: OPOB 11:54 → OBGYN 11:55
PROVIDERS: PCP Family Medicine; Visit Provider Family Medicine
DX: O24.419 Gestational diabetes mellitus in pregnancy, unspecified control (principal); Z3A.00 Weeks of gestation of pregnancy not specified
CPT/HCPCS: 59025

== ENCOUNTER 2022-02-10 07:46 | Outpatient (CLI) | payer BC, MEDICAID, SELFPAY ==
--- NOTE | 2022-02-10 08:01 | US_ITS ---
WS: [id number] BIOPHYSICAL PROFILE AMNIOTIC FLUID HISTORY: GESTATIONAL DIABETES COMPARISON: 02/04/2022 Cardiac activity: 150 bpm. Cervix: closed. Placenta: Posterior and fundal. Placenta grade: 2 Parameters are as follows: Breathin Movement: 2 Tone: 2 Fluid volume: 2 Amniotic fluid index: 12.2 cm. Maximal vertical pocket 4.9 cm. US/US OB lmt w/ BPP wo NST IMPRESSION: 1. Biophysical profile score: 8/8. 2. Normal amniotic fluid.
== END 2022-02-10 07:47 | disposition home or self-care (01) ==
LOC: RAD 07:47
PROVIDERS: PCP Family Medicine; Visit Provider Family Medicine
DX: O24.419 Gestational diabetes mellitus in pregnancy, unspecified control (principal)
CPT/HCPCS: 76815; 76819

== ENCOUNTER 2022-02-20 22:00 | Outpatient (CLI) | payer BC, MEDICAID, SELFPAY ==
[2022-02-20] VITALS (9 sets, daily range): BP systolic 97–115; BP diastolic 57–74; PULSE 85–103; RESP 14; BMI 34.0
[2022-02-21 00:13] VITALS: BP 106/59; PULSE 88
[2022-02-21 00:42] VITALS: TEMP 36.3
[2022-02-21 00:43] VITALS: BP 109/60; PULSE 85
== END 2022-02-21 00:58 | disposition home or self-care (01) ==
LOC: OPOB 22:03 → OBGYN 22:04
PROVIDERS: PCP Family Medicine; Visit Provider Family Medicine
DX: O26.899 Other specified pregnancy related conditions, unspecified trimester (principal); Z3A.00 Weeks of gestation of pregnancy not specified; R10.9 Unspecified abdominal pain
CPT/HCPCS: 59025; 99211

== ENCOUNTER 2022-02-23 13:05 | Outpatient (CLI) | payer BC, MEDICAID, SELFPAY ==
[2022-02-23 13:00] VITALS: BMI 35.9
[2022-02-23 13:13] VITALS: BP 123/77; PULSE 105; RESP 17
== END 2022-02-23 13:35 | disposition home or self-care (01) ==
LOC: OPOB 13:06 → OBGYN 13:06
PROVIDERS: PCP Family Medicine; Visit Provider Family Medicine
DX: O24.419 Gestational diabetes mellitus in pregnancy, unspecified control (principal); Z3A.00 Weeks of gestation of pregnancy not specified
CPT/HCPCS: 59025

== ENCOUNTER 2022-02-24 07:40 | Outpatient (CLI) | payer BC, MEDICAID, SELFPAY ==
--- NOTE | 2022-02-24 07:49 | US_ITS ---
WS: [id number] BIOPHYSICAL PROFILE AND LIMITED OB. HISTORY: WEEKLY BPP AND KELLY COMPARISON: 02/10/2022 Presentation: Vertex. Cervix: Obscured by the head deep within the pelvis. Placenta: Not imaged. HEART: FHR of 114BPM. Biophysical profile: Parameters are as follows: Breathin Movement: 2 Tone: 2 Fluid volume: 2 Amniotic fluid index: 8.6 cm. Maximal vertical pocket 2.9 cm. US/US OB lmt w/ BPP wo NST IMPRESSION: 1. Biophysical profile score: 8/8. 2. Amniotic fluid index 8.6 cm with a maximum vertical pocket of 2.9 cm. Amniot ic fluid index has decreased from 12.2 cm on the prior study.
== END 2022-02-24 07:41 | disposition home or self-care (01) ==
PROVIDERS: PCP Family Medicine; Visit Provider Family Medicine
DX: O24.419 Gestational diabetes mellitus in pregnancy, unspecified control (principal)
CPT/HCPCS: 76815; 76819

== ENCOUNTER 2022-02-26 05:58 | Inpatient (IN) | payer BC, MEDICAID, SELFPAY ==
[2022-02-26] VITALS (47 sets, daily range): BP systolic 102–171; BP diastolic 56–87; PULSE 68–146; RESP 17–18; TEMP 36.3–36.7; O2SAT 97–100; BMI 34.3
[2022-02-26 07:27] LABS: Basophils % 0.3 %; Eosinophils # 0.2 10^3/uL (0.0-0.8); Eosinophils % 1.6 %; Hematocrit 39.4 % (37.0-47.0); Hemoglobin 12.6 g/dL (11.5-15.3); Lymphocytes # 3.4 10^3/uL (0.8-4.8); Lymphocytes % 35.6 %; Mean Corpuscular Volume 87.6 fl (81-99); Mean Platelet Volume 11.3 fL (7.4-10.4); Monocytes # 0.7 10^3/uL (0.2-0.9); Monocytes % 7.5 %; Neutrophils # 5.26 10^3/uL (1.8-7.7); Neutrophils % 54.6 %; Nucleated Red Blood Cells % 0 %; Platelet Count 218 10^3/cmm (130-400); Red Cell Distribution Width 13.2 % (12.1-15.1); White Blood Count 9.6 10^3/uL (4.0-10.0)
[2022-02-26] MEDS: dextrose 5%-lactated ringers 1,000 ML 125 ML IV (07:38)
[2022-02-26] MEDS: oxytocin 30 UNIT/500 ML BAG IV (07:38)
[2022-02-26 07:47] LABS: Glucose Point of Care 73 mg/dL (70-110)
--- NOTE | 2022-02-26 08:12 | PM.HP ---
Providers/Chief Complaint Admitting Physician: Caio Yo MD Primary Care Provider: Greg Gamble MD Chief Complaint: induction History of Present Illness Kayla Horta is a 26 year old @ 39.0 weeks by LMP c/w 8 wk US. Preg c/b h/o PE while on OCP's in 2016 - on Lovenox 40mg daily for prophylaxis during , Down's in family tree, Rh negative, rubella equivocal, gDM diet-controlled The patient presented to labor and delivery triage for a scheduled induction of labor due to the above complications. Her blood sugar has been well controlled at home with diet alone. She took her last dose of Lovenox on the evening of 02/24/2022. In labor and delivery she was noted to be 2 cm dilated with 50% effacement. She was having contractions every 4 to 6 minutes but they were not strong. The patient currently feels well. She denies any headaches, chest pains, shortness of breath, nausea, vomiting, diarrhea, constipation, vaginal bleeding, leakage of fluid. Medications/Allergies Home Medications Medication Instructions Recorded Confirmed Last Taken Type blood-glucose meter #1 ea 12/24/21 02/20/22 Unknown Rx blood sugar diagnostic (OneTouch #100 ea 01/14/22 02/20/22 Unknown Rx Ultra Test strips) lancets (OneTouch UltraSoft #200 ea 01/14/22 02/20/22 Unknown Rx Lancets) Lovenox 40 units SUBCUT DAILY 02/05/22 02/26/22 02/24/22 20:30 History Allergies Allergy/AdvReac Type Severity Reaction Status Date / Time No Known Allergies Allergy Verified 02/20/22 23:21 PFSH Acute PFSH: Medical History Hx pulmonary embolism While on control Social History Smoking and tobacco status: never smoked Alcohol intake: never Female Reproductive History: : 2 Vitals/I&O/Wt Last Vital Signs Pulse 91 02/26/22 07:55 Resp 17 02/26/22 07:50 BP 109/73 02/26/22 07:55 O2 Del Method 02/26/22 07:50 Weight last 48 hrs Weight 176 lb Physical Exam Narrative: General: Alert and oriented x3 Eyes: Pupils equal round and reactive to light and accommodation Mouth: Mucous membranes moist, pharynx non-erythematous Cardiac: Regular rate and rhythm without murmurs Lungs: Clear to auscultation bilaterally without wheezes, crackles or rhonchi Abdomen: Soft, non-tender, fundus consistent with gestational age Extremities: Trace edema in the bilateral lower extremities Data : 02/26/22 07:05 A&P Assessment and plan (1) Supervision of high risk , unspecified, third trimester: The patient is doing well at this time. We will start IV Pitocin for induction of labor. The patient is to be induced secondary to gestational diabetes and a history of pulmonary embolism while on control. Patient's initial blood sugar was 73 and platelets were 218. The patient should be able to get a laboring epidural. We will follow the patient's blood sugars during labor. All questions were answered. The patient is in agreement with the current plan of care. The patient is GBS negative. (2) Rh negative status during : (3) Gestational diabetes: Attestations Medical Necessity Statement*: The patient will be here for greater than 2 midnights due to routine intrapartum and management of labor and delivery. Coding Level of Care Code Acute Dynamotor Repairer for fito Keenan Diagnoses Supervision of high risk , unspecified, third trimester O09.93 Rh negative status during O26.899; Z67.91 Gestational diabetes O24.419
[2022-02-26] MEDS: lactated ringers 1,000 ML 999 ML IV ×2 (10:46→11:36)
[2022-02-26] MEDS: lidocaine 2% INJ 20 mL INJECTION (12:14)
--- NOTE | 2022-02-26 12:33 | P.PCNOB_ITS ---
Delivery Note: Date of delivery: February 26, 2022 Pre-delivery diagnoses: 1. Intrauterine at 39.0 weeks gestation 2. History of pulmonary embolism while on OCPs 3. On daily Lovenox for thromboembolism prophylaxis 4. Rh- status 5. Rubella equivocal 6. Gestational diabetes diet-controlled Post-delivery diagnoses: 1. Intrauterine status post spontaneous vaginal delivery at 39.0 weeks gestation 2. History of pulmonary embolism while on OCPs 3. On daily Lovenox for thromboembolism prophylaxis 4. Rh- status 5. Rubella equivocal 6. Gestational diabetes diet-controlled 7. Delivery of healthy infant male weighing 7 pounds 4 ounces with Apgars of 8 and 9 8. Second-degree midline perineal laceration with repair Procedure: Spontaneous vaginal delivery Delivering Physician: Caio Yo MD Estimated blood loss (mL): 100 Findings: 1. Delivery of healthy infant male weighing 7 pounds 4 ounces with Apgars of 8 9 2. Intact placenta with central umbilical cord insertion site Kayla Horta is a 26 year old G2 now P2 status post spontaneous vaginal delivery @ 39.0 weeks by LMP c/w 8 wk US. Preg c/b h/o PE while on OCP's in 2016 - on Lovenox 40mg daily for prophylaxis during , Down's in family tree, Rh negative, rubella equivocal, gDM diet-controlled Pre-Delivery Course: The patient presented to labor and delivery for a scheduled induction of labor on the morning of 02/26/2022. She was started on IV Pitocin at approximately 8 AM. The patient began having regular contractions. She was 2 cm upon admission. By 10:45 AM on 02/26/[address] Clear fluid was noted. The patient received a laboring epidural, however was making rapid change and it did not give significant assistance in pain control. The patient continued to then make rapid change and was complete by 11:48 AM on 02/26/2022. Delivery: The patient began pushing at 11:55 AM on 02/26/2022. The patient pushed well and the delivered at 12:06 PM on 02/26/2022. The was delivered in the OA position. The right shoulder was the anterior shoulder and it delivered with ease. The rest the delivered with ease. The 's mouth and nose were bulb suctioned by myself. The was crying immediately after delivery. The infant was placed on mother's chest where the nurses were awaiting to care for him. The umbilical cord was clamped by myself and cut by the 's father. Cord blood was obtained. Cord was then drained of blood and traction was placed on umbilical cord. Uterine massage was carried out and the placenta delivered at 12:10 PM without complication. The placenta was noted to be intact with a central umbilical cord insertion site. The uterus was massaged and noted to be firm and low. The cervix was inspected and no lacerations were noted. The vaginal wall was inspected and the patient had a small second-degree perineal laceration. 2% lidocaine was placed for anesthesia. 3-0 Vicryl was used to repair the laceration in a running fashion. The patient tolerated this well. Rectal exam was done and no sutures were noted in the rectal vault. Currently both the mother and are doing well. History History History 2 Term 2 0 Miscarriages/Ectopic 0 Living Children 2 Past Pregnancies Del. Date GA/Weeks Outcome Route Wt Inf Gender Labor Lgth Comp. Anesth esia Location 02/26/22 39 live - full term Vaginal 7 lb 4 oz Male 4 regional [facility] Delivery Date: 02/26/22 Last Updated by: Caio Yo MD gDM diet controlled, Lovenox for PE prophylaxis due to prior PE while on OCP's Coding Level of Care Code Acute Rabbit Breeder for Chg Shlomo
--- NOTE | 2022-02-26 13:08 | ANES.PREANE2 ---
Pre-Anesthetic Assessment Height/Weight: Height 1.52 m Weight 79.832 kg Temp Pulse Resp BP Pulse Ox O2 Del Method 97.3 F L 73 17 108/77 100 02/26/22 11:20 02/26/22 13:00 02/26/22 07:50 02/26/22 13:00 02/26/22 11:39 02/26/22 10:28 Preop Diagnosis: labor pain Familial anesthetic complications: none Was Beta Mitch taken within 24 hours: N/A Was Clonidine taken within 24 hours: N/A Social No alcohol and No tobacco Exam alert, oriented x 3, clear to auscultation bilaterally and regular rate & rhythm Airway Submandibular: within normal limits Cervical ROM: within normal limits Mallampati: Class II Dentition: full Pulmonary Asthma Anesthetic Plan ASA status: 2 Anesthesia: Regional (specify below) (Labor epidural) Medications/Allergies Home Medications Medication Instructions Recorded Confirmed Last Taken Type blood-glucose meter #1 ea 12/24/21 02/20/22 Unknown Rx blood sugar diagnostic (OneTouch #100 ea 01/14/22 02/20/22 Unknown Rx Ultra Test strips) lancets (OneTouch UltraSoft #200 ea 01/14/22 02/20/22 Unknown Rx Lancets) Lovenox 40 units SUBCUT DAILY 02/05/22 02/26/22 02/24/22 20:30 History Allergies Allergy/AdvReac Type Severity Reaction Status Date / Time No Known Allergies Allergy Verified 02/20/22 23:21 Current Medications Generic Name Dose Route Start Last Admin Trade Name Freq PRN Reason Stop Dose Admin Dextrose/Lactated Ringer's 1,000 mls @ 125 mls/hr 02/26/22 07:00 02/26/22 07:38 Dextrose 5%-Lactated Ringers IV 125 mls/hr .Q8H DANIEL Administration Oxytocin 30 unit in 500 mls @ 1 mls/hr 02/26/22 07:00 02/26/22 10:00 Pitocin IV 20 milliunit/min .Q24H DANIEL 20 mls/hr Titration Protocol 1 MILLIUNIT/MIN Ropivacaine 200 mg in 100 mls @ 13 mls/hr 02/26/22 10:45 02/26/22 11:36 Naropin Premix EPIDURAL 13 mls/hr .Q7H42M DANIEL Administration Lactated Ringer's 1,000 mls @ 999 mls/hr 02/26/22 10:42 02/26/22 11:36 Lactated Ringers IV 999 mls/hr .Q1H1M PRN Administration See label comments PFSH Anesthesia Medical History Hx pulmonary embolism While on control Social History Smoking and tobacco status: never smoked Alcohol intake: never Female Reproductive History : 2 Data Anesthesia : 02/26/22 07:05 Short CBC 02/26/22 Range/Units 07:05 WBC 9.6 (4.0-10.0) 10^3/uL Hgb 12.6 (11.5-15.3) g/dL Hct 39.4 (37.0-47.0) % MCV 87.6 (81-99) fl Plt Count 218 (130-400) 10^3/cmm Neut % (Auto) 54.6 % Neut # (Auto) 5.26 (1.8-7.7) 10^3/uL Cardiac Studies: No Data to Display Anesthesia Procedures Epidural Time Out Performed: Yes Consents Signed: Procedure Consent Consent: requested by attending/covering physician, from patient, risks and benefits reviewed and patient agrees to proceed Lumbar Level: L3-L4 Epidural procedure: sterile prep of area, 1% lidocaine to numb the area, 18 g needle, neg for paresthesia, test dose given, placed PCEA, no systemic response, sterile dressing applied and 0.2% Ropiavacaine @ mls/hr (13) Additional Comments: 2% lido PF used as test dose, BRODERIKC at 5cm, cath at 10cm, bolused 5mls of 2% lido PF bolused (patient with slight scoliosis to left)
--- NOTE | 2022-02-26 14:35 | PC.NURSE ---
This RN-IBCLC to bedside. Patient was skin to skin with infant, infant noted to be showing signs of hunger. These signs were pointed out to patient. Patient was assisted in positioning in the football hold. Education provided on how to hold breast and assist infant to latch. Patient had questions on how early she could start pumping, recommended to wait until she and infant felt comfortable latching and mature milk is in. Patient stated that infants latch was comfortable, not like the pain she experience with her previous journey.
[2022-02-26] MEDS: acetaminophen 325 mg Tablet 650 MG PO (16:47)
[2022-02-26] MEDS: docusate sodium 100 mg Capsule PO (20:29)
[2022-02-26] MEDS: ibuprofen 800 mg tablet PO (20:29)
--- NOTE | 2022-02-26 23:19 | ANE.PACU2 ---
Inpatient post-anesthesia follow up: Airway intact: Yes Vital signs: Temperature 98.0 F Pulse Rate 73 Respiratory Rate 17 Blood Pressure 102/65 Pulse Oximetry 97 Oxygen Delivery Me thod Room Air Oxygen Flow Rate Fraction of Inspir ed Oxygen Hydration adequate: Yes Nausea and vomiting: No Pain level: 2 Mental status: Baseline
[2022-02-26 23:32] LABS: Hematocrit 32.3 % (37.0-47.0); Hemoglobin 10.4 g/dL (11.5-15.3); Mean Corpuscular HGB Conc 32.2 g/dL (30.0-36.0); Mean Corpuscular Hemoglobin 28.6 pg (28.0-34.0); Mean Corpuscular Volume 88.7 fl (81-99); Mean Platelet Volume 11.2 fL (7.4-10.4); Platelet Count 185 10^3/cmm (130-400); Red Blood Count 3.64 10^6/uL (4.1-5.3); Red Cell Distribution Width 13.2 % (12.1-15.1); White Blood Count 12.8 10^3/uL (4.0-10.0)
[2022-02-27] MEDS: benzocaine-menthol 78 gm Canister 1 SPRAY TOPICAL (00:03)
[2022-02-27] MEDS: lanolin oint 7 gm 1 APPLIC TOPICAL (00:03)
[2022-02-27 01:54] VITALS: BP 108/72; PULSE 79; O2SAT 98
[2022-02-27 05:42] VITALS: BP 107/68; PULSE 78; TEMP 36.7; O2SAT 97
[2022-02-27] MEDS: prenatal vitamin Capsule 1 CAP PO (08:07)
[2022-02-27] MEDS: ibuprofen 800 mg tablet PO ×2 (08:08→16:35)
[2022-02-27] MEDS: docusate sodium 100 mg Capsule PO (08:08)
[2022-02-27 11:36] VITALS: BP 100/62; PULSE 95; RESP 18; TEMP 36.6; O2SAT 97
[2022-02-27] MEDS: enoxaparin 40 mg/0.4 mL Syringe SUBCUT (13:52)
--- NOTE | 2022-02-27 15:18 | P.DS_ITS ---
Discharge Providers Date of Admission: 02/26/22 05:58 Date of Discharge: February 27, 2022 Attending Provider at Admission: Caio Yo MD Attending Provider at Discharge: Caio Yo MD Primary Care Provider: Greg Gamble MD Diagnoses at Discharge Discharge Diagnosis (1) Supervision of high risk , unspecified, third trimester: Status: Resolved (2) Rh negative status during : Status: Resolved (3) Gestational diabetes: Status: Inactive Other Information Additional DC diagnoses/information: 1.? Intrauterine status post spontaneous vaginal delivery at 39.0 weeks gestation 2.? History of pulmonary embolism while on OCPs 3.? On daily Lovenox for thromboembolism prophylaxis 4.? Rh- status 5.? Rubella equivocal 6.? Gestational diabetes diet-controlled 7.? Delivery of healthy male weighing 7 pounds 4 ounces with Apgars of 8 and 9 8.? Second-degree midline perineal laceration with repair? Reason for Visit Reason for Visit: induction Brief History: Kayla Horta is a 26 year old G2 now P2 status post spontaneous vaginal delivery @ 39.0 weeks by LMP c/w 8 wk US. Preg c/b h/o PE while on OCP's in 2016 - on Lovenox 40mg daily for prophylaxis during , Down's in family tree, Rh negative, rubella equivocal, gDM diet-controlled Hospital Course Hospital Course The patient presented to labor and delivery for a scheduled induction of labor on the morning of 02/26/2022.? She was started on IV Pitocin at approximately 8 AM.? The patient began having regular contractions.? She was 2 cm upon admission.? By 10:45 AM on 02/26/[address] Clear fluid was noted.? The patient received a laboring epidural, however was making rapid change and it did not give significant assistance in pain control.? The patient continued to then make rapid change and was complete by 11:48 AM on 02/26/2022. The patient began pushing at 11:55 AM on 02/26/2022.? The patient pushed well and the infant delivered at 12:06 PM on 02/26/2022.? The infant was delivered in the OA position.? The right shoulder was the anterior shoulder and it delivered with ease.? The rest the infant delivered with ease.? The 's mouth and nose were bulb suctioned by myself.? The infant was crying immediately after delivery.? The was placed on mother's chest where the nurses were awaiting to care for him.? The umbilical cord was clamped by myself and cut by the infant's father.? Cord blood was obtained.? Cord was then drained of blood and traction was placed on umbilical cord.? Uterine massage was carried out and the placenta delivered at 12:10 PM without complication.? The placenta was noted to be intact with a central umbilical cord insertion site.? The uterus was massaged and noted to be firm and low.? The cervix was inspected and no lacerations were noted.? The vaginal wall was inspected and the patient had a small second-degree perineal laceration.? 2% lidocaine was placed for anesthesia.? 3-0 Vicryl was used to repair the laceration in a running fashion.? the patient has done well without complications. She is ambulating, voiding, stooling and tolerating food by mouth. Her pain is well controlled and her bleeding is decreasing well. Routine discharge instructions were discussed. The patient will follow up with me in 6 weeks or sooner if needed. Physical Exam Narrative: General: Alert and oriented x3 Cardiac: Regular rate and rhythm without murmurs Lungs: Clear to auscultation bilaterally without wheezes, crackles or rhonchi Abdomen: Soft, mild tenderness over uterus. The uterus is firm and 2 cm below the umbilicus. Extremities: Trace edema in the bilateral lower extremities Discharge Data Studies Completed and Pending Pending at discharge Category Date Time Status Complete Crossmatch Routine Lab 02/27/22 08:21 Results Maternal Hemorrhage Scrn Routine Lab 02/27/22 08:28 Ordered Rho D Immune Globulin Routine Lab 02/27/22 08:21 Results Type and Screen Routine Lab 02/27/22 08:21 Results Laboratory Results WBC 12.8 10^3/uL (4.0-10.0) H 02/26/22 23:20 RBC 3.64 10^6/uL (4.1-5.3) L 02/26/22 23:20 Hgb 10.4 g/dL (11.5-15.3) L 02/26/22 23:20 Hct 32.3 % (37.0-47.0) L 02/26/22 23:20 MCV 88.7 fl (81-99) 02/26/22 23:20 MCH 28.6 pg (28.0-34.0) 02/26/22 23:20 MCHC 32.2 g/dL (30.0-36.0) 02/26/22 23:20 RDW 13.2 % (12.1-15.1) 02/26/22 23:20 Plt Count 185 10^3/cmm (130-400) 02/26/22 23:20 MPV 11.2 fL (7.4-10.4) H 02/26/22 23:20 Neut % (Auto) 54.6 % 02/26/22 07:05 Lymph % (Auto) 35.6 % 02/26/22 07:05 Stark % (Auto) 7.5 % 02/26/22 07:05 Eos % (Auto) 1.6 % 02/26/22 07:05 Baso % (Auto) 0.3 % 02/26/22 07:05 Neut # (Auto) 5.26 10^3/uL (1.8-7.7) 02/26/22 07:05 Lymph # (Auto) 3.4 10^3/uL (0.8-4.8) 02/26/22 07:05 Stark # (Auto) 0.7 10^3/uL (0.2-0.9) 02/26/22 07:05 Eos # (Auto) 0.2 10^3/uL (0.0-0.8) 02/26/22 07:05 Baso # (Auto) 0.0 10^3/uL (0.0-0.1) 02/26/22 07:05 Nucleated RBC % (auto) 0 % 02/26/22 07:05 Nucleated RBCs # 0.0 /100WBC 02/26/22 07:05 POC Glucose 73 mg/dL (70-110) 02/26/22 07:30 Blood Type B Negative 02/26/22 07:05 Rho(D) Type Negative 02/26/22 07:05 Antibody Screen Negative 02/26/22 07:05 Vitals Last Vital Signs Temp 97.8 F 02/27/22 11:36 Pulse 95 02/27/22 11:36 Resp 18 02/27/22 11:36 BP 100/62 02/27/22 11:36 Pulse Ox 97 02/27/22 11:36 O2 Del Method 02/27/22 11:36 Discharge Plan Discharge Patient Disposition: Home Condition: Good Prescriptions: New ibuprofen 800 mg Tablet 800 mg PO TID Qty: 30 0RF docusate sodium 100 mg Capsule 100 mg PO BID Qty: 30 0RF -U 106.5-1 mg Capsule 1 cap PO DAILY Qty: 30 0RF Continued Lovenox auto-injector 40 units SUBCUT DAILY No Action (DME) blood-glucose meter Kit See Rx Instructions .Route Qty: 1 0RF Rx Instructions: As directed (DME) OneTouch Ultra Test Strip See Rx Instructions .Route Qty: 100 6RF Rx Instructions: As directed 4x/day (DME) lancets [OneTouch UltraSoft Lancets] Misc See Rx Instructions .Route Qty: 200 0RF Rx Instructions: As directed to test glucose 4x/day Discharge Orders: Discharge Order (Routine); Ordered 02/27/22 Ordered By: Caoi Yo Referrals: Caio Yo MD [Physician] - 6 Weeks (* Please call Dr. Ochoa office first thing Wednesday morning to make your 6 week appointment) Discharge Diet: Regular Discharge Activity: Increase activity as tolerated Patient Instructions: Depression (DC), Bleeding (DC), Preeclampsia and Eclampsia After Delivery (GEN), Vaginal Delivery (DC), OB Discharge Report, OB Food/Drug Interaction Guide, Opioid Safety, OB Home Care, OB Proud Parent Packet Activity Restrictions/Additional Instructions: Nothing per vagina for 6 weeks. If you have any concern for bleeding, or a blood clot, please seek immediate medical attention. Discharge Attestations Time Spent in Discharge Care*: greater than 30 min Quality Metrics Clinical Quality Measures [ No reported AMI, CVA or VTE this stay] Coding Level of Care Code Acute Chg FW DC note Diagnoses Supervision of high risk , unspecified, third trimester O09.93 Rh negative status during O26.899; Z67.91 Gestational diabetes O24.419
[2022-02-27 16:21] VITALS: BP 114/78; PULSE 84; RESP 16; TEMP 36.8; O2SAT 98
[2022-02-27 16:28] VITALS: BP 114/78; PULSE 84; RESP 16; TEMP 36.8; O2SAT 98
[2022-02-27] MEDS: measles,mumps,rubella pf Vial (w/diluent) 0.5 ML SUBCUT (16:35)
[2022-02-27 16:43] VITALS: BP 114/78; PULSE 84; RESP 16; TEMP 36.8; O2SAT 98
== END 2022-02-27 17:30 | disposition home or self-care (01) | DRG 806 ==
PROVIDERS: Admitting Provider Family Medicine; PCP Family Medicine; Visit Provider Family Medicine
DX: O24.420 Gestational diabetes mellitus in childbirth, diet controlled (principal); O36.0930 Maternal care for other rhesus isoimmunization, third trimester, not applicable or unspecified; Z37.0 Single live birth; O70.1 Second degree perineal laceration during delivery; Z3A.39 39 weeks gestation of pregnancy; Z86.711 Personal history of pulmonary embolism; Z82.79 Family history of other congenital malformations, deformations and chromosomal abnormalities; Z79.01 Long term (current) use of anticoagulants
CPT/HCPCS: 36415; 36416; 36430; 59409; 82962; 85025; 85027; 85460; 86850; 86900; 90384; 90707; 96372; 98960; J1650; J2795

== ENCOUNTER → 2022-04-13 10:45 | Outpatient (BNVA) | payer BC, MEDICAID, SELFPAY | PROVIDERS: PCP Family Medicine; Visit Provider Family Medicine | DX: O24.419 Gestational diabetes mellitus in pregnancy, unspecified control (principal) | CPT/HCPCS: 82947 ==

== ENCOUNTER → 2022-07-13 11:56 | Outpatient (BNVA) | payer BC, MEDICAID, SELFPAY | PROVIDERS: PCP Family Medicine; Visit Provider Family Medicine | DX: R30.0 Dysuria (principal); Z34.90 Encounter for supervision of normal pregnancy, unspecified, unspecified trimester; Z3A.00 Weeks of gestation of pregnancy not specified | CPT/HCPCS: 80307; 81000; 81025; 84702; 87086 ==

== ENCOUNTER 2022-07-22 09:57 | Outpatient (CLI) | payer BC, MEDICAID, SELFPAY ==
--- NOTE | 2022-07-22 10:15 | US_ITS ---
WS: [id number] EARLY OBSTETRICAL ULTRASOUND (<14 WEEKS). HISTORY: Dates. COMPARISON: None available. Single intrauterine gestational sac is identified. Cardiac activity at 157 BPM. [place]-rump length arleen sures 5.8 cm which corresponds to a gestation of 12w2d. Normal-appearing yolk sac and amnion demonstr ated. No subchorionic hemorrhage. No free fluid. Tiny amount of fluid adjacent to the lower gestational sac is very nonspecific. Normal size ovaries with no mass. US/US OB <= 14 weeks fetus [id number] IMPRESSION: 1. Single intrauterine gestation of 12 weeks 2 days with an EDC of 02/01/2023. 2. Normal heart rate.
== END 2022-07-22 09:58 | disposition home or self-care (01) ==
LOC: RAD 10:03
PROVIDERS: PCP Family Medicine; Visit Provider Family Medicine
DX: Z34.90 Encounter for supervision of normal pregnancy, unspecified, unspecified trimester (principal)
CPT/HCPCS: 76801

== ENCOUNTER → 2022-07-28 09:08 | Outpatient (BNVA) | payer BC, MEDICAID, SELFPAY | PROVIDERS: PCP Family Medicine; Visit Provider Family Medicine | DX: Z34.90 Encounter for supervision of normal pregnancy, unspecified, unspecified trimester (principal); R30.0 Dysuria; Z3A.00 Weeks of gestation of pregnancy not specified | CPT/HCPCS: 84144; 84443; 84702; 85025; 86592; 86762; 86803; 86850; 86900; 87340; 87806 ==

== ENCOUNTER → 2022-08-07 10:12 | Outpatient (BNVA) | payer BC, MEDICAID, SELFPAY | PROVIDERS: PCP Family Medicine; Visit Provider Family Medicine | DX: R79.89 Other specified abnormal findings of blood chemistry (principal); O09.91 Supervision of high risk pregnancy, unspecified, first trimester | CPT/HCPCS: 84439; 84443; 84481 ==

== ENCOUNTER → 2022-08-17 14:38 | Outpatient (BNVA) | payer BC, MEDICAID, SELFPAY | PROVIDERS: PCP Family Medicine; Visit Provider Family Medicine | DX: O09.91 Supervision of high risk pregnancy, unspecified, first trimester (principal); Z86.711 Personal history of pulmonary embolism | CPT/HCPCS: 87491; 87591 ==

== ENCOUNTER → 2022-09-24 09:49 | Day surgery (SDC) | payer BC, MEDICAID, SELFPAY ==
[2022-09-24 10:17] VITALS: BP 100/74; PULSE 100; RESP 18; TEMP 36.7; O2SAT 99
[2022-09-24 11:12] VITALS: BP 100/74; PULSE 100; RESP 18; TEMP 36.7; O2SAT 99
== END ==
PROVIDERS: PCP Family Medicine; Visit Provider Family Medicine
DX: O09.91 Supervision of high risk pregnancy, unspecified, first trimester (principal); O26.899 Other specified pregnancy related conditions, unspecified trimester; Z67.91 Unspecified blood type, Rh negative; Z3A.00 Weeks of gestation of pregnancy not specified
CPT/HCPCS: 36415; 36430; 86850; 86900; 90384; 96372

== ENCOUNTER → 2022-10-20 10:43 | Outpatient (BNVA) | payer BC, MEDICAID, SELFPAY | PROVIDERS: PCP Family Medicine; Visit Provider Family Medicine | DX: O09.91 Supervision of high risk pregnancy, unspecified, first trimester (principal); Z3A.00 Weeks of gestation of pregnancy not specified | CPT/HCPCS: 82950 ==

== ENCOUNTER → 2022-11-03 08:16 | Outpatient (BNVA) | payer BC, MEDICAID, SELFPAY | PROVIDERS: PCP Family Medicine; Visit Provider Family Medicine | DX: O99.810 Abnormal glucose complicating pregnancy (principal); Z3A.00 Weeks of gestation of pregnancy not specified | CPT/HCPCS: 82951; 82952 ==

== ENCOUNTER → 2022-11-27 10:59 | Outpatient (BNVA) | payer BC, MEDICAID, SELFPAY | PROVIDERS: PCP Family Medicine; Visit Provider Family Medicine | DX: Z51.81 Encounter for therapeutic drug level monitoring (principal) | CPT/HCPCS: 85025 ==

== ENCOUNTER 2022-12-22 13:42 | Outpatient (CLI) | payer BC, MEDICAID, SELFPAY ==
[2022-12-22] VITALS (11 sets, daily range): BP systolic 103–108; BP diastolic 59–73; PULSE 90–122; RESP 17; O2SAT 98–100; BMI 35.3
== END 2022-12-22 14:35 | disposition home or self-care (01) ==
LOC: OPOB 13:47 → OBGYN 13:47
PROVIDERS: PCP Family Medicine; Visit Provider Family Medicine
DX: O36.8390 Maternal care for abnormalities of the fetal heart rate or rhythm, unspecified trimester, not applicable or unspecified (principal); Z3A.00 Weeks of gestation of pregnancy not specified
CPT/HCPCS: 59025; 81000; 87086; 99211

== ENCOUNTER 2023-01-05 15:00 | Outpatient (CLI) | payer BC, MEDICAID, SELFPAY ==
[2023-01-05 15:00] VITALS: RESP 18; BMI 30.4
[2023-01-05 15:14] VITALS: BP 108/74; PULSE 113
[2023-01-05 15:24] VITALS: BP 103/73; PULSE 109
[2023-01-05 15:34] VITALS: BP 97/64; PULSE 107
[2023-01-05 15:44] VITALS: BP 103/68; PULSE 99
== END 2023-01-05 15:50 | disposition home or self-care (01) ==
LOC: OPOB 15:04 → OBGYN 15:07
PROVIDERS: PCP Family Medicine; Visit Provider Family Medicine
DX: Z36.89 Encounter for other specified antenatal screening (principal); Z3A.00 Weeks of gestation of pregnancy not specified
CPT/HCPCS: 59025; 99211

== ENCOUNTER → 2023-01-07 10:49 | Outpatient (BNVA) | payer BC, MEDICAID, SELFPAY | PROVIDERS: PCP Family Medicine; Visit Provider Family Medicine | DX: Z34.90 Encounter for supervision of normal pregnancy, unspecified, unspecified trimester (principal); Z3A.00 Weeks of gestation of pregnancy not specified | CPT/HCPCS: 87081 ==

== ENCOUNTER 2023-01-12 15:09 | Outpatient (CLI) | payer BC, MEDICAID, SELFPAY ==
[2023-01-12 15:10] VITALS: BMI 35.7
[2023-01-12 15:16] VITALS: BP 116/79; PULSE 116
[2023-01-12 15:37] VITALS: BP 118/58; PULSE 112
== END 2023-01-12 15:47 | disposition home or self-care (01) ==
LOC: OPOB 15:09 → OBGYN 15:10
PROVIDERS: PCP Family Medicine; Visit Provider Family Medicine
DX: O26.899 Other specified pregnancy related conditions, unspecified trimester (principal); Z3A.00 Weeks of gestation of pregnancy not specified
CPT/HCPCS: 59025

== ENCOUNTER 2023-01-15 09:16 | Inpatient (IN) | payer BC, MEDICAID, SELFPAY ==
[2023-01-15] VITALS (11 sets, daily range): BP systolic 69–119; BP diastolic 26–87; PULSE 64–184; RESP 16–17; TEMP 36.6–36.8; BMI 35.7
[2023-01-15] MEDS: lactated ringers 1,000 ML 999 ML IV (09:30)
[2023-01-15 09:49] LABS: Basophils % 0.4 %; Eosinophils # 0.1 10^3/uL (0.0-0.8); Hematocrit 36.1 % (36-47); Lymphocytes # 3.3 10^3/uL (0.8-4.8); Lymphocytes % 32.7 %; Mean Corpuscular HGB Conc 30.7 g/dL (30-55); Mean Corpuscular Hemoglobin 25.7 pg (27-33); Mean Corpuscular Volume 83.6 fl (85-98); Mean Platelet Volume 10.1 fL (7.4-10.4); Monocytes # 0.7 10^3/uL (0.2-0.9); Monocytes % 7.4 %; Neutrophils % 58.1 %; Nucleated Red Blood Cells % 0 %; Platelet Count 224 10^3/cmm (157-399); Red Blood Count 4.32 10^6/uL (3.85-5.65); Red Cell Distribution Width 14.8 % (12.1-15.1); White Blood Count 9.98 10^3/uL (3.29-11.43)
[2023-01-15] MEDS: lidocaine 2% INJ 20 mL INJECTION (09:50)
[2023-01-15] MEDS: oxytocin 30 UNIT/500 ML BAG 600 UNIT IV (09:52)
--- NOTE | 2023-01-15 10:15 | P.HP_ITS ---
Providers/Chief Complaint Admitting Physician: Caio Yo MD Primary Care Provider: Caio Yo MD Chief Complaint: Contractions History of Present Illness Kayla Horta is a 27 year old @ 37.4 weeks by 12 wk US and uncertain LMP. Preg c/b h/o PE while on OCP's in 2016 - on Lovenox 40mg daily for prophylaxis during current , Down's in family tree, Rh negative, h/o gDM, h/o asthma The patient awoke at approximately 8 AM on the morning of 01/15/2023 with contractions. Shortly after at approximately 8:30 AM, she noted leakage of fluid. The contractions were strong and hard, so she presented to labor and delivery at 9 AM on 01/15/2023. The patient was noted to be an anterior lip at 9:07 AM. I was contacted at that time arrived at 9:13 AM and arrived at 9:16 AM. The patient was stable anterior lip and changed to complete by 9:36 AM. The patient denies any chest pains, shortness of breath, nausea, vomiting, diarrhea, constipation, fevers. Medications/Allergies Home Medications Medication Instructions Recorded Confirmed Last Taken Type multivitamin no.51-ferrous 1 cap PO DAILY #30 caps 02/27/22 01/12/23 09/24/22 Rx fumarate 106.5 mg-folic acid 1 mg capsule (-U) ferrous sulfate 325 mg (65 mg 325 mg PO DAILY #30 tabs 12/09/22 01/12/23 Unknown Rx iron) tablet enoxaparin 40 mg/0.4 mL 40 mg (0.4 mL) SUBCUT DAILY #12 mL 12/15/22 01/12/23 01/12/23 Rx subcutaneous syringe Allergies Allergy/AdvReac Type Severity Reaction Status Date / Time No Known Allergies Allergy Verified 01/05/23 16:16 PFSH Acute PFSH: Medical History Asthma Gestational diabetes Hx pulmonary embolism While on control Surgical History Hx of wisdom tooth extraction Social History Smoking and tobacco status: never smoked Alcohol intake: current Alcohol intake frequency: few times a month Substance/Drug Use: never Marital status: Number of children: 2 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 Nadine/Jewish: Buddhist Female Reproductive History: : 3 Vitals/I&O/Wt Last Vital Signs Pulse 85 01/15/23 09:55 BP 118/62 01/15/23 09:55 O2 Del Method Room Air 01/15/23 09:00 Physical Exam Narrative: General: Alert and oriented x3 Eyes: Pupils equal round and reactive to light and accommodation Mouth: Mucous membranes moist, pharynx non-erythematous Cardiac: Regular rate and rhythm without murmurs Lungs: Clear to auscultation bilaterally without wheezes, crackles or rhonchi Abdomen: Soft, fundus consistent with gestational age Extremities: Trace edema in the bilateral lower extremities Data 01/15/23 09:00 A&P Assessment and plan (1) Supervision of high risk , unspecified, third trimester: The patient presented to labor and delivery in spontaneous labor with spontaneous rupture membranes. She will be kept for intrapartum management of l abor and delivery. (2) Rh negative status during : (3) Hx pulmonary embolism: Attestations Medical Necessity Statement*: The patient will be here for greater than 2 midnights due to routine intrapartum and management of labor and delivery. Coding Level of Care Code Acute Code for Chg Fwd Diagnoses Supervision of high risk , unspecified, third trimester O09.93 Rh negative status during O26.899; Z67.91 Hx pulmonary embolism Z86.711
--- NOTE | 2023-01-15 10:26 | PM.DELIVERY ---
Delivery Note: Date of delivery: January 15, 2023 Pre-delivery diagnoses: 1. Intrauterine at 37.4 weeks gestation 2. History of pulmonary embolism while on control in 2016 3. Down's syndrome in family training 4. Rh- 5. History of asthma 6. Spontaneous labor with spontaneous rupture membranes Post-delivery diagnoses: 1. Intrauterine status post spontaneous vaginal delivery at 37.4 weeks gestation 2. History of pulmonary embolism while on control in 2016 3. Down's syndrome in family training 4. Rh- 5. History of asthma 6. Spontaneous labor with spontaneous rupture membranes 7. Delivery of healthy male weighing 7 pounds 12 ounces with Apgars of 8 and 9 Procedure: Spontaneous vaginal delivery Delivering Physician: Caio Yo MD Estimated blood loss (mL): 150 Findings: 1. Healthy infant male weighing 7 pounds 12 ounces with Apgars of 8 and 9 2. Intact placenta with peripheral umbilical cord insertion site 3. Second-degree perineal laceration with repair Pre-Delivery Course: Kayla Horta is a 27 year old G3 now P2 status post spontaneous vaginal delivery @ 37.4 weeks by 12 wk US and uncertain LMP. Preg was c/b h/o PE while on OCP's in 2016 - on Lovenox 40mg daily for prophylaxis during current , Down's in family tree, Rh negative, h/o gDM, h/o asthma The patient awoke at approximately 8 AM on the morning of 01/15/2023 with contractions. Shortly after at approximately 8:30 AM, she noted leakage of fluid. The contractions were strong and hard, so she presented to labor and delivery at 9 AM on 01/15/2023. The patient was noted to be an anterior lip at 9:07 AM. I was contacted at that time arrived at 9:13 AM and arrived at 9:16 AM. The patient was stable anterior lip and changed to complete by 9:36 AM. Delivery: The patient began pushing at 9:37 AM on 01/15/2023. The patient pushed well and the delivered in the OA position at 9:39 AM on 01/15/2023. The 's left shoulder was anterior shoulder and delivered with a steady downward pressure. The rest of the infant delivered without complication. The infant was crying immediately upon delivery. The infant's mouth and nose were bulb suctioned by myself. The infant was placed on the mother's chest where the nurses were waiting to care for him. The cord was clamped by myself after approximately 1 minute and cut by the infant's father. Cord blood was then obtained. The cord was then drained of blood and traction was placed on umbilical cord and uterine massage was carried out. The placenta delivered without complication at 9:44 AM on 01/15/2023. The placenta was noted to be intact with a peripheral umbilical cord insertion site. The cervix was inspected and no lacerations were noted. The vaginal wall was inspected and a second-degree midline perineal laceration was noted. 2% lidocaine was placed for anesthesia. 3-0 Vicryl was used to repair the laceration in a running fashion. The patient tolerated this well. A rectal exam was done and no sutures were noted in the rectal vault. Currently both the mother and are doing well. History History History 3 Term 3 0 Miscarriages/Ectopic 0 Living Children 3 Past Pregnancies Del. Date GA/Weeks Outcome Route Wt Inf Gender Labor Lgth Comp. Anesthesia Location 10/09/20 39 live - full term Vaginal 7 lb 12 oz Female 13 hours [facility] 02/26/22 39 live - full term Vaginal 7 lb 4 oz Male 4 [facility] 01/15/23 37 live - full term Vaginal 7 lb 12 oz Male 1.5 hr [facility] Delivery Date: 02/26/22 Last Updated by: Caio Yo MD gDM diet controlled, Lovenox for PE prophylaxis due to prior PE while on OCP's Delivery Date: 01/15/23 Last Updated by: Caio Yo MD Quick delivery, second-degree perineal laceration, no anesthesia, spontaneous labor and spontaneous rupture membranes. Coding Level of Care Code Acute Code for Chg Fwd Diagnoses
[2023-01-15] MEDS: acetaminophen 325 mg Tablet 650 MG PO (12:51)
[2023-01-15] MEDS: ibuprofen 800 mg tablet PO ×2 (17:06→22:49)
[2023-01-15] MEDS: enoxaparin 40 mg/0.4 mL Syringe SUBCUT (17:19)
[2023-01-15] MEDS: docusate sodium 100 mg Capsule PO (18:33)
[2023-01-15 23:21] LABS: Hematocrit 31.9 % (36-47); Mean Corpuscular HGB Conc 31.3 g/dL (30-55); Mean Corpuscular Hemoglobin 26.3 pg (27-33); Mean Corpuscular Volume 83.9 fl (85-98); Mean Platelet Volume 10.2 fL (7.4-10.4); Platelet Count 203 10^3/cmm (157-399); Red Cell Distribution Width 14.6 % (12.1-15.1)
[2023-01-15] MEDS: benzocaine-menthol 78 gm Canister 1 SPRAY TOPICAL (23:43)
[2023-01-16 04:39] VITALS: BP 108/68; PULSE 81; RESP 16; TEMP 37.1
[2023-01-16 08:00] VITALS: BP 107/61; PULSE 80; RESP 18; TEMP 36.5; O2SAT 98
[2023-01-16] MEDS: ibuprofen 800 mg tablet PO (08:20)
[2023-01-16] MEDS: docusate sodium 100 mg Capsule PO (08:20)
[2023-01-16] MEDS: prenatal vitamin Capsule 1 CAP PO (08:20)
[2023-01-16] MEDS: enoxaparin 40 mg/0.4 mL Syringe SUBCUT (09:00)
--- NOTE | 2023-01-16 11:08 | P.DS_ITS ---
Discharge Providers Date of Admission: 01/15/23 09:16 Date of Discharge: January 16, 2023 Attending Provider at Admission: Caio Yo MD Attending Provider at Discharge: Caio Yo MD Primary Care Provider: Caio Yo MD Diagnoses at Discharge Discharge Diagnosis (1) Supervision of high risk , unspecified, third trimester: Status: Resolved (2) Rh negative status during : Status: Resolved (3) Hx pulmonary embolism: Status: Acute Permanent problem details: While on control Other Information Additional DC diagnoses/information: 1.? Intrauterine status post spontaneous vaginal delivery at 37.4 weeks gestation 2.? History of pulmonary embolism while on control in 2016 3.? Down's syndrome in family training 4.? Rh- 5.? History of asthma 6.? Spontaneous labor with spontaneous rupture membranes 7.? Delivery of healthy infant male weighing 7 pounds 12 ounces with Apgars of 8 and 9 Reason for Visit Reason for Visit: Contractions Brief History: Kayla Horta is a 27 year old G3 now P3 status post spontaneous vaginal delivery @ 37.4 weeks by 12 wk US and uncertain LMP. Preg was c/b h/o PE while on OCP's in 2016 - on Lovenox 40mg daily for prophylaxis during? current , Down's in family tree, Rh negative, h/o gDM, h/o asthma The patient awoke at approximately 8 AM on the morning of 01/15/2023 with contractions.? Shortly after at approximately 8:30 AM, she noted leakage of fluid.? The contractions were strong and hard, so she presented to labor and delivery at 9 AM on 01/15/2023.? The patient was noted to be an anterior lip at 9:07 AM.? I was contacted at that time arrived at 9:13 AM and arrived at 9:16 AM.? The patient was stable anterior lip and changed to complete by 9:36 AM. Hospital Course Hospital Course The patient began pushing at 9:37 AM on 01/15/2023.? The patient pushed well and the delivered in the OA position at 9:39 AM on 01/15/2023.? The 's left shoulder was anterior shoulder and delivered with a steady downward pressure.? The rest of the delivered without complication.? The was crying immediately upon delivery.? The 's mouth and nose were bulb suctioned by myself.? The was placed on the mother's chest where the nurses were waiting to care for him.? The cord was clamped by myself after approximately 1 minute and cut by the infant's father.? Cord blood was then obtained.? The cord was then drained of blood and traction was placed on umbilical cord and uterine massage was carried out.? The placenta delivered without complication at 9:44 AM on 01/15/2023.? The placenta was noted to be intact with a peripheral umbilical cord insertion site.? The cervix was inspected and no lacerations were noted.? The vaginal wall was inspected and a second-degree midline perineal laceration was noted.? 2% lidocaine was placed for anesthesia.? 3-0 Vicryl was used to repair the laceration in a running fashion.? the patient has done well without any signs of complications. The patient is ambulating, voiding, passing gas and tolerating food by mouth. Her bleeding has decreased well. Her pain is well controlled with Motrin alone. We will plan to discharge her home this afternoon and follow-up at 6 weeks or sooner if needed. Routine discharge instructions were discussed. All questions were answered. Physical Exam Narrative: General: Alert and oriented x3 Cardiac: Regular rate and rhythm without murmurs Lungs: Clear to auscultation bilaterally without wheezes, crackles or rhonchi Abdomen: Soft, mild tenderness over uterus. The uterus is firm and 2 cm below the umbilicus. Extremities: Trace edema in the bilateral lower extremities Discharge Data Studies Completed and Pending Pending at discharge Category Date Time Status Complete Crossmatch Routine Lab 01/15/23 09:00 Results Rho D Immune Globulin Routine Lab 01/15/23 09:00 Results Type and Screen Routine Lab 01/15/23 09:00 Results Laboratory Results WBC 14.20 10^3/uL (3.29-11.43) H 01/15/23 22:45 RBC 3.80 10^6/uL (3.85-5.65) L 01/15/23 22:45 Hgb 10.00 g/dL (11.27-16.99) L 01/15/23 22:45 Hct 31.9 % (36-47) L 01/15/23 22:45 MCV 83.9 fl (85-98) L 01/15/23 22:45 MCH 26.3 pg (27-33) L 01/15/23 22:45 MCHC 31.3 g/dL (30-55) 01/15/23 22:45 RDW 14.6 % (12.1-15.1) 01/15/23 22:45 Plt Count 203 10^3/cmm (157-399) 01/15/23 22:45 MPV 10.2 fL (7.4-10.4) 01/15/23 22:45 Neut % (Auto) 58.1 % 01/15/23 09:00 Lymph % (Auto) 32.7 % 01/15/23 09:00 [place] % (Auto) 7.4 % 01/15/23 09:00 Eos % (Auto) 1.0 % 01/15/23 09:00 Baso % (Auto) 0.4 % 01/15/23 09:00 Neut # (Auto) 5.80 10^3/uL (1.8-7.7) 01/15/23 09:00 Lymph # (Auto) 3.3 10^3/uL (0.8-4.8) 01/15/23 09:00 [place] # (Auto) 0.7 10^3/uL (0.2-0.9) 01/15/23 09:00 Eos # (Auto) 0.1 10^3/uL (0.0-0.8) 01/15/23 09:00 Baso # (Auto) 0.0 10^3/uL (0.0-0.1) 01/15/23 09:00 Nucleated RBC % (auto) 0 % 01/15/23 09:00 Nucleated RBCs # 0.0 /100WBC 01/15/23 09:00 Blood Type B Negative 01/15/23 09:00 Rho(D) Type Negative 01/15/23 09:00 Antibody Screen Negative 01/15/23 09:00 Screen Negative (Negative) 01/15/23 22:45 Vitals Last Vital Signs Temp 97.7 F 01/16/23 08:00 Pulse 80 01/16/23 08:00 Resp 18 01/16/23 08:00 BP 107/61 01/16/23 08:00 Pulse Ox 98 01/16/23 08:00 O2 Del Method Room Air 01/16/23 08:00 Discharge Plan Discharge Patient Disposition: Home Condition: Good Prescriptions: New docusate sodium 100 mg Capsule 100 mg PO BID Qty: 30 0RF ibuprofen 800 mg Tablet 800 mg PO TID Qty: 30 0RF Continued ferrous sulfate 325 mg (65 mg iron) tablet 325 mg PO DAILY Qty: 30 3RF enoxaparin 40 mg/0.4 mL syringe 40 mg SUBCUT DAILY Qty: 12 5RF -U 106.5-1 mg Capsule 1 cap PO DAILY Qty: 30 0RF Discharge Orders: Discharge Order (Routine); Ordered 01/16/23 Ordered By: Caio Yo Referrals: Caio Yo MD [Primary Care Provider] - 6 Weeks Discharge Diet: Regular Discharge Activity: Increase activity as tolerated Patient Instructions: Opioid Safety Activity Restrictions/Additional Instructions: Nothing per vagina for 6 weeks. Showers are recommended instead of baths for the first 6 weeks. Discharge Attestations Time Spent in Discharge Care*: greater than 30 min Quality Metrics Clinical Quality Measures [ No reported AMI, CVA or VTE this stay] Coding Level of Care Code Acute Code for Chg Fwd Diagnoses Supervision of high risk , unspecified, third trimester O09.93 Rh negative status during O26.899; Z67.91 Hx pulmonary embolism Z86.711
[2023-01-16 12:56] VITALS: BP 108/64; PULSE 75; RESP 16; TEMP 36.7
[2023-01-16 13:48] VITALS: BP 114/76; PULSE 74; RESP 16; TEMP 36.8
[2023-01-16 13:57] VITALS: BP 114/76; PULSE 74; RESP 16; TEMP 36.8
== END 2023-01-16 14:23 | disposition home or self-care (01) | DRG 807 ==
LOC: OPOB 09:17 → OBGYN 09:17
PROVIDERS: Admitting Provider Family Medicine; PCP Family Medicine; Visit Provider Family Medicine
DX: O36.0930 Maternal care for other rhesus isoimmunization, third trimester, not applicable or unspecified (principal); Z37.0 Single live birth; O70.1 Second degree perineal laceration during delivery; Z3A.37 37 weeks gestation of pregnancy; Z82.79 Family history of other congenital malformations, deformations and chromosomal abnormalities
CPT/HCPCS: 36415; 36430; 59025; 59409; 85025; 85027; 85460; 86850; 86900; 90384; 96372; 99211; J1650; J2590; J7120